=== PATIENT | female | born 1960 | race Caucasian/White ===

== ENCOUNTER 2023-03-24 01:00 | Day surgery (SDC) | payer BC, SELFPAY ==
[2023-03-24] VITALS (13 sets, daily range): BP systolic 102–198; BP diastolic 51–111; PULSE 80–98; RESP 12–20; TEMP 36.4–36.8; O2SAT 91–98; BMI 29.3; BMI 30.4
--- NOTE | 2023-03-24 01:18 | ED.GENADULT ---
HPI - General Adult General Time Seen by Provider: 01:18 Date Seen: 03/24/23 Chief complaint: Nausea/Vomiting Stated complaint: difficulty breathing, dizzy Time Seen by Provider: 03/24/23 01:18 Source: patient, RN notes reviewed and old records reviewed Mode of arrival: ambulatory Limitations: no limitations History of Present Illness HPI narrative: Lorenza is a very pleasant 62-year-old female with a history of type 2 diabetes brought to the emergency room by her for evaluation regarding persistent vomiting and diarrhea. Patient states that she had the onset of reflux type symptoms approximately 48 hours ago. She states that she has had that in the past but never this bad. Her reflux symptoms became vomiting and diarrhea in nature. When she arrives she did have loose stool here and now continues to retch although she has only been able to bring up bile the past couple hours. She has not had a fever that they know of. She denies shortness of breath. She does agree that occasionally she has chest pain but states that that is because of the reflux. No past history of heart disease. She denies shortness of breath. She notes she does have discomfort in her upper abdomen. Her sister recently had her gallbladder removed. According to nursing staff her reports that she is not acting normally. Related Data Allergies Allergy/AdvReac Type Severity Reaction Status Date / Time No Known Drug Allergies Allergy Verified 03/24/23 01:17 Review of Systems Status of ROS: Reports: 10 or more systems reviewed and unremarkable except as noted in History and below Const: Reports: fatigue; Denies: fever or chills Eyes: Denies: change in vision ENMT: Denies: throat pain, neck pain, throat swelling or difficulty swallowing Cardio: Reports: chest pain and lightheadedness; Denies: palpitations, edema, swelling of feet/ankles or shortness of breath with exertion Resp: Denies: shortness of breath or cough GI: Reports: abdominal pain, nausea, vomiting, diarrhea and blood in stool (Noted only when wiping. Not in the toilet.); Denies: difficulty swallowing : Denies: painful urination, urinary frequency, urinary urgency or decreased urine ouput Musculo: Denies: back pain or neck pain Integ/Breast: Denies: rash or redness Neuro: Denies: headache Endo: Reports: fatigue Allergy/Immuno: Denies: throat swelling PFSH PFSH Social History Smoking Status: Current every day smoker Do you use any of these nicotine containing products: None How often do you have a drink containing alcohol: 2-4 times a month How many standard drinks containing alcohol do you have on a typical day: 1 or 2 AUDIT-C Alcohol total score: 2 Non-prescribed substance use: marijuana (any form) Exam Narrative: Exam Narrative: Patient is alert and oriented. Appears to be mentating normally for this examiner. Eyes are clear. Oral cavity is with moist mucous membranes but lips are dry. Neck is supple. Heart with tachycardic rate and rhythm. Lungs are clear bilaterally. Patient has no epigastric tenderness but does have pain in the right upper quadrant. No masses are palpated. Lower extremities without edema. Const: Vital Signs, click to edit/add: Vital Signs - 24 hr 03/24/23 01:04 03/24/23 03:11 Temperature 97.7 F Pulse Rate [Pulse Oximeter] 96 98 Respiratory Rate 20 18 Blood Pressure [Le ft Upper Arm] 194/111 H 198/99 H Pulse Oximetry 98 93 Oxygen Delivery Me thod Room Air Room Air Documenting provider has reviewed patient's vital signs: yes Course Course ED Course: Differential diagnosis includes but is not limited to COVID, gastroenteritis, enteritis, cholecystitis, urinary tract infection, small-bowel obstruction. Will place IV and give 1 L normal saline Zofran 4 mg. At this time will check CBC, comprehensive panel +bilirubin, CRP, urinalysis. Plan on CT of the chest abdomen and pelvis. Also order EKG and troponin. Reevaluation(s) Reevaluation #1: Patient noted no improvement of her nausea with Zofran and thus she was given Ativan 0.5 mg IV with improvement. Reevaluation #2: Patient not vomiting but has continued nausea. I a a.m. not able to elicit clear complaints of discomfort from her but her blood pressure remains elevated. Patient will be given Dilaudid 0.5 mg IV. I did discuss her CT with her which does show a large stone in the gallbladder with suspected cholecystitis. Her LFTs and bilirubin however within normal limits. After speaking to hospitalist will order ultrasound. Patient will be admitted to the floor. Vital Signs Vital signs: Initial Vital Signs Temperature 97.7 F 03/24/23 01:04 Temperature Source Temporal Artery Scan 03/24/23 01:04 Pulse Rate 96 03/24/23 01:04 Respiratory Rate 20 03/24/23 01:04 Blood Pressure 194/111 H 03/24/23 01:04 Blood Pressure Mean 138 H 03/24/23 01:04 Blood Pressure Position Supine 03/24/23 01:04 Pulse Oximetry 98 03/24/23 01:04 Oxygen Delivery Method Room Air 03/24/23 01:04 Vital Signs Temperature 97.7 F 03/24/23 01:04 Pulse Rate 96 03/24/23 01:04 Respiratory Rate 20 03/24/23 01:04 Blood Pressure 194/111 H 03/24/23 01:04 Pulse Oximetry 98 03/24/23 01:04 Oxygen Delivery Method Room Air 03/24/23 01:04 Temperature 97.7 F 03/24/23 01:04 Pulse Rate 98 03/24/23 03:11 Respiratory Rate 18 03/24/23 03:11 Blood Pressure 198/99 H 03/24/23 03:11 Pulse Oximetry 93 03/24/23 03:11 Oxygen Delivery Method Room Air 03/24/23 03:11 Medical Decision Making MDM Narrative Medical decision making narrative: 1. Cholelithiasis with cholecystitis-normal white count, LFTs. CRP is elevated at 2.5. CT shows a large 3 cm stone with suspected cholecystitis. Zosyn 3.375 g IV is given. Initially patient did not describe pain but more nausea. She appears to have discomfort at this time will give her Dilaudid 0.5 mg IV. Have ordered ultrasound as 1st morning appointment with our techs. Patient will be admitted to the floor. 2. Nausea vomiting and diarrhea-Zofran helped minimally with the nausea and thus Ativan 0.5 mg IV was given. Patient also received 2 L normal saline and is now on maintenance fluids. CT shows possibility of some inflammation of the colon. Possibly this would indicate some sort of gastritis. Patient has noted a small amount of blood when wiping but no obvious blood in the toilet this evening. No blood in her vomit. EKG and troponin reassuring as patient did describe some discomfort in her chest with her history of ?reflux). 3. Altered behavior-patient noted to have a some odd behavior occasionally. I did enter the room to only to find her laying on the floor. I did ascertain that she did not fall there but actually took her pillow and blanket to lay on the floor. White count is normal and I do not have evidence of sepsis at this time but have added lactate to her workup. 4. Diabetes type 2-patient currently has high glucose at 0337. No evidence of a metabolic acidosis with normal bicarb at this time. Patient is NPO. 5. Disposition-admit to the hospital at this time under the care of [facility] hospitalist. Hospitalist requests that I contact surgery and I was able to speak with Dr. Higgins in regards to this patient. I did notify her both of suspected cholecystitis but cannot rule out underlying colitis at this time. Dictation done with voice recognition, and as a result, wrong word or [id number] substitutions may have occurred.? There may be errors in the script that have gone undetected.? Please consider this when interpreting information found in this chart. Medical Records Medical records reviewed: Yes I reviewed the patient's medical records Lab Data Lab results reviewed: Yes I reviewed the patient's lab results Labs: Lab Results 03/24/23 03/24/23 03/24/23 Range/Units 01:26 01:34 01:58 WBC 10.35 (4.50-11.00) K/uL RBC 5.40 H (4.00-5.20) m/uL Hgb 16.0 (12.0-16.0) gm/dL Hct 47.2 (33.0-51.0) % MCV 87 (80-100) fL MCH 30 (26-34) pg MCHC 34 (32-36) gm/dL RDW Coeff of Laura 12.3 (11.5-15.5) % Plt Count 210 (140-440) K/uL Neut % (Auto) 79.0 H (42.0-72.0) % Lymph % (Auto) 13.6 L (20-44) % [place] % (Auto) 6.1 (0.0-11.0) % Eos % (Auto) 0.9 (0.0-7.0) % Baso % (Auto) 0.2 (0.0-3.0) % Neut # (Auto) 8.20 H (1.7-7.0) K/uL Lymph # (Auto) 1.40 (0.90-2.90) K/uL [place] # (Auto) 0.60 (0.00-0.90) K/UL Eos # (Auto) 0.09 (0.00-0.50) K/uL Baso # (Auto) 0.02 (0.00-0.30) K/uL Abs Immat Gran (auto) 0.02 (0.00-0.30) K/uL Imm/Tot Granulo (auto) 0.2 % Sodium 135 (135-149) mmol/L Potassium 3.9 (3.6-5.1) mmol/L Chloride 102 (96-114) mmol/L Carbon Dioxide 21 (20-32) mmol/L Anion Gap 12 (7-15) mEq/L BUN 22 (7-30) mg/dL Creatinine 0.7 (0.5-1.5) mg/dL Estimated Creat Clear 67.60 Estimated GFR 99 ml/min Glucose 337 H (60-115) mg/dL Lactate (0.5-1.9) mmol/L Calcium 9.6 (8.4-10.6) mg/dL Total Bilirubin 0.6 (0.1-1.5) mg/dL Direct Bilirubin 0.1 (0.0-0.5) mg/dL AST 17 (12-35) U/L ALT 22 (4-35) U/L Alkaline Phosphatase 105 (40-150) U/L C-Reactive Protein 2.5 H (0.5-1.0) mg/dL Total Protein 6.6 (6.0-8.3) g/dL Albumin 3.6 (3.3-5.0) g/dL Urine Color (Yellow) Urine Appearance (Clear) Urine pH (5.0-8.5) Ur Specific [place] (1.000-1.030) Urine Protein (Negative) Urine Glucose (UA) (Negative) Urine Ketones (Negative) Urine Blood (Negative) Urine Nitrite (Negative) Urine Bilirubin (Negative) Urine Urobilinogen (0.2-1.0) Ur Leukocyte Esterase (Negative) Urine RBC (0-2) Urine WBC (0-5) Ur Squamous Epith Cells (None-Few) Urine Bacteria (None) Urine Mucus (None) SARS-CoV-2 (PCR) Negative SARS-CoV-2 (Negative) Lab Acknowledgement POC Troponin I 0.00 L (0.01-0.04) ng/ml 03/24/23 03/24/23 03/24/23 Range/Units 02:53 04:39 04:53 WBC (4.50-11.00) K/uL RBC (4.00-5.20) m/uL Hgb (12.0-16.0) gm/dL Hct (33.0-51.0) % MCV (80-100) fL MCH (26-34) pg MCHC (32-36) gm/dL RDW Coeff of Laura (11.5-15.5) % Plt Count (140-440) K/uL Neut % (Auto) (42.0-72.0) % Lymph % (Auto) (20-44) % [place] % (Auto) (0.0-11.0) % Eos % (Auto) (0.0-7.0) % Baso % (Auto) (0.0-3.0) % Neut # (Auto) (1.7-7.0) K/uL Lymph # (Auto) (0.90-2.90) K/uL [place] # (Auto) (0.00-0.90) K/UL Eos # (Auto) (0.00-0.50) K/uL Baso # (Auto) (0.00-0.30) K/uL Abs Immat Gran (auto) (0.00-0.30) K/uL Imm/Tot Granulo (auto) % Sodium (135-149) mmol/L Potassium (3.6-5.1) mmol/L Chloride (96-114) mmol/L Carbon Dioxide (20-32) mmol/L Anion Gap (7-15) mEq/L BUN (7-30) mg/dL Creatinine (0.5-1.5) mg/dL Estimated Creat Clear Estimated GFR ml/min Glucose (60-115) mg/dL Lactate 1.1 (0.5-1.9) mmol/L Calcium (8.4-10.6) mg/dL Total Bilirubin (0.1-1.5) mg/dL Direct Bilirubin (0.0-0.5) mg/dL AST (12-35) U/L ALT (4-35) U/L Alkaline Phosphatase (40-150) U/L C-Reactive Protein (0.5-1.0) mg/dL Total Protein (6.0-8.3) g/dL Albumin (3.3-5.0) g/dL Urine Color Yellow (Yellow) Urine Appearance Clear (Clear) Urine pH 5.5 (5.0-8.5) Ur Specific [place] 1.020 (1.000-1.030) Urine Protein 2+ A (Negative) Urine Glucose (UA) 3+ A (Negative) Urine Ketones 3+ A (Negative) Urine Blood Trace-lysed A (Negative) Urine Nitrite Negative (Negative) Urine Bilirubin Negative (Negative) Urine Urobilinogen 0.2 (0.2-1.0) Ur Leukocyte Esterase Negative (Negative) Urine RBC 2-5 A (0-2) Urine WBC 0-2 (0-5) Ur Squamous Epith Cells Few (None-Few) Urine Bacteria None (None) Urine Mucus Few A (None) SARS-CoV-2 (PCR) (Negative) Lab Acknowledgement New Spec Needed POC Troponin I (0.01-0.04) ng/ml Imaging Data CT Chest/Ab/Pelvis: Attestation: I have reviewed the pertinent imaging results. My impression: Large gallbladder stone noted. Radiologist's impression: Cardiovascular structures: Heart size is normal. Thoracic aorta and main pulmonary artery are normal in caliber. Mediastinum and fermin: No enlarged lymph nodes by size criteria. Calcified mediastinal lymph node noted. Lungs and pleura: Lungs and pleural spaces are clear. No suspicious nodules, infiltrates, or effusions. Chest wall and axilla: No mass or adenopathy. Bones: Mild multilevel degenerative spondylosis without acute fracture or aggressive osseous lesion. ABDOMEN AND PELVIS: Liver: Hepatic steatosis. Gallbladder and bile ducts: Large 3 cm gallstone noted with question of gallbladder wall thickening/pericholecystic inflammation. If there is concern for acute cholecystitis would recommend further evaluation with ultrasound was more sensitive. Pancreas: Unremarkable. Spleen: Sequela of calcified granulomata. Adrenal glands: Unremarkable. Kidneys: Unremarkable. No hydronephrosis. Unremarkable bladder. GI tract: The majority of the colon is decompressed with mild wall thickening likely related to degree of decompression. A mild infectious/inflammatory colitis is an additional consideration but felt less likely. Additionally, mild wall thickening of the rectum which also may relate to degree of decompression although underlying lesion cannot entirely be excluded. Recommend correlation with colonoscopy history. No evidence of bowel obstruction. The appendix is not discretely visualized. Vascular structures: Abdominal aorta of normal caliber with moderate aortoiliac atherosclerosis. Lymph nodes: Unremarkable. Miscellaneous: No free air or significant free fluid. Pelvic Organs: Unremarkable. Bones: Mild multilevel degenerative spondylosis without acute fracture or aggressive osseous lesion. IMPRESSION: 1. Large 3 cm gallstone noted with question of gallbladder wall thickening/pericholecystic inflammation. If there is concern for acute cholecystitis would recommend further evaluation with ultrasound which would be more sensitive. 2. The majority of the colon is decompressed with mild wall thickening likely related to degree of decompression. A mild infectious/inflammatory colitis is an additional consideration but felt less likely. Additionally, mild wall thickening of the rectum which also may relate to degree of decompression although underlying lesion cannot entirely be excluded. Recommend correlation with colonoscopy history. 3. Hepatic steatosis. 4. No evidence of acute cardiopulmonary process. ECG Data Attestation: I personally reviewed and interpreted this ECG as follows: Interpretation: EKG by my read shows sinus rhythm at a rate of 96. I do not note any acute ST or T-wave changes. Normal HI and QT intervals Discharge Plan Discharge Clinical Impression: Nausea vomiting and diarrhea Abdominal pain Qualifiers: Abdominal location: epigastric Qualified Code(s): R10.13 - Epigastric pain Cholelithiasis Qualifiers: Cholelithiasis location: gallbladder Cholecystitis presence: with cholecystitis Cholecystitis acuity: acute Biliary obstruction: without biliary obstruction Qualified Code(s): K80.00 - Calculus of gallbladder with acute cholecystitis without obstruction Patient Disposition: Admitted As Observation Condition: Improved
--- NOTE | 2023-03-24 01:28 | CRLHL7_ITS ---
For Patients: As a result of the 21st Century Cures Act, medical imaging exams and procedure reports are released immediately into your electronic medical record. You may view this report before your referring provider. If you have questions, please contact your health care provider. INDICATION: Reflux with abdominal pain, dyspnea, dizzy TECHNIQUE: CT chest, abdomen and pelvis acquired with 79 cc Isovue 370 IV contrast. COMPARISON: None. FINDINGS: CHEST: Cardiovascular structures: Heart size is normal. Thoracic aorta and main pulmonary artery are normal in caliber. Mediastinum and fermin: No enlarged lymph nodes by size criteria. Calcified mediastinal lymph node noted. Lungs and pleura: Lungs and pleural spaces are clear. No suspicious nodules, infiltrates, or effusions. Chest wall and axilla: No mass or adenopathy. Bones: Mild multilevel degenerative spondylosis without acute fracture or aggressive osseous lesion. ABDOMEN AND PELVIS: Liver: Hepatic steatosis. Gallbladder and bile ducts: Large 3 cm gallstone noted with question of gallbladder wall thickening/pericholecystic inflammation. If there is concern for acute cholecystitis would recommend further evaluation with ultrasound was more sensitive. Pancreas: Unremarkable. Spleen: Sequela of calcified granulomata. Adrenal glands: Unremarkable. Kidneys: Unremarkable. No hydronephrosis. Unremarkable bladder. GI tract: The majority of the colon is decompressed with mild wall thickening likely related to degree of decompression. A mild infectious/inflammatory colitis is an additional consideration but felt less likely. Additionally, mild wall thickening of the rectum which also may relate to degree of decompression although underlying lesion cannot entirely be excluded. Recommend correlation with colonoscopy history. No evidence of bowel obstruction. The appendix is not discretely visualized. Vascular structures: Abdominal aorta of normal caliber with moderate aortoiliac atherosclerosis. Lymph nodes: Unremarkable. Miscellaneous: No free air or significant free fluid. Pelvic Organs: Unremarkable. Bones: Mild multilevel degenerative spondylosis without acute fracture or aggressive osseous lesion. IMPRESSION: 1. Large 3 cm gallstone noted with question of gallbladder wall thickening/pericholecystic inflammation. If there is concern for acute cholecystitis would recommend further evaluation with ultrasound which would be more sensitive. 2. The majority of the colon is decompressed with mild wall thickening likely related to degree of decompression. A mild infectious/inflammatory colitis is an additional consideration but felt less likely. Additionally, mild wall thickening of the rectum which also may relate to degree of decompression although underlying lesion cannot entirely be excluded. Recommend correlation with colonoscopy history. 3. Hepatic steatosis. 4. No evidence of acute cardiopulmonary process. Please note that all CT scans at this facility use dose modulation, iterative reconstruction, and/or weight-based dosing when appropriate to reduce radiation dose to as low as reasonably achievable. Dictated by Wolf Guajardo MD @ 03/24/2023 4:25:29 AM (Electronically Signed)
[2023-03-24] MEDS: 0.9 % SODIUM CHLORIDE 1000 ml 1,000 ML IV ×2 (01:48→02:26)
[2023-03-24] MEDS: ONDANSETRON 2 MG/ML inj 4 MG IVP (01:48)
[2023-03-24 02:07] LABS: Basophils Absolute Auto 0.02 K/uL (0.00-0.30); Basophils Percent Auto 0.2 % (0.0-3.0); Eosinophils Absolute Auto 0.09 K/uL (0.00-0.50); Eosinophils Percent Auto 0.9 % (0.0-7.0); Hematocrit 47.2 % (33.0-51.0); Immature Granulocytes Abs Auto 0.02 K/uL (0.00-0.30); Immature Granulocytes Pct Auto 0.2 %; Lymphocytes Percent Auto 13.6 % (20-44); Mean Corpuscular HGB Conc 34 gm/dL (32-36); Mean Corpuscular Hemoglobin 30 pg (26-34); Mean Corpuscular Volume 87 fL (80-100); Monocytes Percent Auto 6.1 % (0.0-11.0); Platelet Count* 210 K/uL (140-440); RDW Coefficient of Variation % 12.3 % (11.5-15.5); White Blood Count* 10.35 K/uL (4.50-11.00)
[2023-03-24 02:12] LABS: Slide Review Reflex No
[2023-03-24] MEDS: LORazepam 2 MG/ML inj 0.5 MG IVP (02:15)
[2023-03-24 02:19] LABS: Albumin* 3.6 g/dL (3.3-5.0); Chloride* 102 mmol/L (96-114); Potassium* 3.9 mmol/L (3.6-5.1); Sodium* 135 mmol/L (135-149)
[2023-03-24 02:21] LABS: Creatinine* 0.7 mg/dL (0.5-1.5); Estimated Glomerular Filt Rate 99 ml/min
[2023-03-24 02:22] LABS: Alanine Aminotransferase* 22 U/L (4-35); Alkaline Phosphatase* 105 U/L (40-150); Anion Gap 12 mEq/L (7-15); Aspartate Amino Transferase* 17 U/L (12-35); Bilirubin Direct* 0.1 mg/dL (0.0-0.5); Bilirubin Total* 0.6 mg/dL (0.1-1.5); Blood Urea Nitrogen* 22 mg/dL (7-30); Calcium* 9.6 mg/dL (8.4-10.6); Carbon Dioxide* 21 mmol/L (20-32); Glucose* 337 mg/dL (60-115); Total Protein* 6.6 g/dL (6.0-8.3)
[2023-03-24 02:26] LABS: C Reactive Protein* 2.5 mg/dL (0.5-1.0)
[2023-03-24 02:42] LABS: SARS PCR* Negative SARS-CoV-2 (Negative)
[2023-03-24 03:00] LABS: Appearance Urine Clear (Clear); Bilirubin Urine Negative (Negative); Blood Urine Trace-lysed (Negative); Color Urine Yellow (Yellow); Glucose Urine 3+ (Negative); Ketones Urine 3+ (Negative); Leukocyte Esterase Urine Negative (Negative); Nitrite Urine Negative (Negative); Protein Urine 2+ (Negative); Urobilinogen Urine 0.2 (0.2-1.0); pH Urine 5.5 (5.0-8.5)
[2023-03-24 03:08] LABS: Mucus Urine Few; Squamous Epithelial Cell Urine Few (None-Few); WBC Urine 0-2 (0-5)
[2023-03-24] MEDS: HYDROmorphone 0.5 mg/0.5 ml inj IVP ×3 (04:51→16:41)
[2023-03-24] MEDS: PIPERACILLIN/TAZOBACTAM 3.375 GM in 0.9 % SODIUM CHLORIDE Mini-bag 100 ML IVPB (04:51)
[2023-03-24] MEDS: KETOROLAC 15 MG/ML inj IVP (04:51)
[2023-03-24] MEDS: 0.9 % SODIUM CHLORIDE 1000 ml 1,000 ML 125 ML IV (04:51)
[2023-03-24 04:58] LABS: Lactate* 1.1 mmol/L (0.5-1.9)
[2023-03-24 04:58] LABS: Lab Add On Test New Spec Needed
--- NOTE | 2023-03-24 05:30 | PC.NURSE ---
report given to Pascale MORENO on Med/surg. patient going to room 281
--- NOTE | 2023-03-24 05:47 | PC.NURSE ---
patient brought to room 281 on medsurg
--- NOTE | 2023-03-24 06:30 | CRLHL7_ITS ---
For Patients: As a result of the Century Cures Act, medical imaging exams and procedure reports are released immediately into your electronic medical record. You may view this report before your referring provider. If you have questions, please contact your health care provider. INDICATION: Right upper quadrant abdomen pain. TECHNIQUE: Ultrasound abdomen limited. Sonographic images of the right upper quadrant were obtained using hathaway-scale and color Doppler images. COMPARISON: Same day CT abdomen pelvis. FINDINGS: Liver: The liver is normal in size with increased parenchymal echotexture compatible pack steatosis. Scattered hypoechoic ill-defined areas throughout the hepatic parenchyma measurements 4.0 cm, most compatible with focal fatty sparing. No suspicious masses. No intrahepatic biliary dilatation. Gallbladder: Large gallstone within the gallbladder neck measuring to 2.7 cm. The gallbladder wall is thickened measuring up to 8 mm. No definite pericholecystic inflammation. Negative ultrasonographic Arias`s sign. Common bile duct: 3 mm. Pancreas: Visualized portions of the pancreas appear homogeneous. Right kidney: Normal in size. Normal echotexture and cortex. No suspicious masses, stones, or hydronephrosis. Vasculature: Proximal abdominal aorta and IVC are unremarkable. IMPRESSION: Large gallstone within the gallbladder neck measuring to 2.7 cm. The gallbladder wall is thickened measuring up to 8 mm. No definite pericholecystic inflammation. Negative ultrasonographic Arias`s sign. Findings are indeterminate but overall concerning for acute cholecystitis in the appropriate clinical context. Nuclear medicine hepatobiliary imaging could be considered to confirm, if clinically indicated. Hepatic steatosis with areas of focal fatty sparing. Dictated by Wolf Guajardo MD @ 03/24/2023 8:20:52 AM (Electronically Signed)
--- NOTE | 2023-03-24 06:48 | P.IMHP_ITS ---
Hospitalist- H&P: HPI History of Present Illness Date Seen: 03/24/23 Chief complaint: difficulty breathing, dizzy Narrative: Lorenza Mcmanus is a 62 year old female is seen as an Interactive Telehealth visit. The patient is a 62-year-old female with a past medical history notable for type 2 diabetes and tobacco use disorder who presents for abdominal pain, nausea, vomiting and diarrhea. All the symptoms started around the same time around 10 PM 3 days prior to admission. The pain was worse with food. She describes it as a severe burning pain. Shortly after the onset of the abdominal pain she developed nausea and vomiting. She also developed some loose stools. Occasionally the pain radiated up into her chest. She thinks it is related to reflux and vomiting. She has not vomited bile several times and has not been able to keep food down. She did develop some chills on the evening prior to admission. She is unsure whether she had a fever prior to admission, she did not measure her temperature. She reports the pain was so severe she felt short of breath and also felt somewhat dizzy. In the ER she underwent a CT scan that showed a large gallstone and changes consistent with cholecystitis. She had incidental colonic thickening and rectal thickening that will need outpatient follow-up. Review of Systems Status of ROS: Reports: 10 or more systems reviewed and unremarkable except as noted in History and below [facility] Medical History Type II diabetes mellitus ?E11.9 - Type 2 diabetes mellitus without complications (ICD-10) Surgical History H/O: ?Z98.891 - History of uterine scar from previous surgery (ICD-10) Social History What is your current living situation?: I presently have a place to live Problems where you live: no known problems Problems where you live details: None In the past 12 months, utilities in danger of being shut off: no In the past 12 mos, have been you worried that your food would run out before you had money to buy more?: never true In the past 12 mos, the food you bought just didn't last and you didn't have money to buy more?: never true Highest level of school completed/degree received: Associate degree: academic program Smoking Status: Current every day smoker What tobacco products do you use: cigarettes Smoking packs per day: 1 Smoking cigarettes per day: 20.0 Do you use any of these nicotine containing products: None How often do you have a drink containing alcohol: monthly or less How many standard drinks containing alcohol do you have on a typical day: 1 or 2 How often do you have six or more drinks on one occasion: Never AUDIT-C Alcohol total score: 1 Non-prescribed substance use: marijuana (any form) Caffeine: Yes How often does anyone, including family, friends and others, physically hurt you : never How often does anyone, including family, friends and others, insult or talk down to you: never How often does anyone, including family, friends and others, threaten you with harm: never How often does anyone, including family, friends and others, scream or curse at you: never service: No Meds Home Medications and Allergies Allergies Allergy/AdvReac Type Severity Reaction Status Date / Time morphine AdvReac Mild itching Verified 03/24/23 06:45 Exam Narrative: Exam Narrative: GENERAL: vital signs reviewed, well developed and nourished, appears uncomfortable HEENT: pupils are equal and round, extraocular movements are grossly within normal limits and oral mucosa is dry. NECK: Supple without lymphadenopathy or thyromegaly according to nursing staff examination observation HEART: Regular rate and rhythm without any rubs, murmurs or gallops. LUNGS: Clear to auscultation bilaterally with good air movement throughout ABDOMEN: Observation from nurse assisted exam, abdomen appears soft, mild diffuse tenderness on the upper abdomen with significant tenderness in the right upper quadrant, and nondistended with Positive bowel sounds noted. EXTREMITIES: Strength and sensation is observed to be grossly within normal limits in the upper and lower extremities. No focal strength deficit is observed SKIN: Observed warm and dry with color normal NEURO: Alert, awake. Answers all questions appropriately. No focal neuro deficits are noted. PSYCH: Affect normal Const: Vital Signs, click to edit/add: Vital Signs - 24 hr 03/24/23 01:04 03/24/23 03:11 03/24/23 05:57 Temperature 97.7 F 97.8 F Pulse Rate [Pulse Oximeter] 96 98 Pulse Rate [Right Pulse Oximeter] 80 Respiratory Rate 20 18 18 Blood Pressure [Le ft Upper Arm] 194/111 H 198/99 H Blood Pressure [Ri ght Arm] 184/79 H Pulse Oximetry 98 93 93 Oxygen Delivery Me thod Room Air Room Air Room Air Hospitalist - H&P: Result Labs Labs: Short CBC 03/24/23 Range/Units 01:58 WBC 10.35 (4.50-11.00) K/uL Hgb 16.0 (12.0-16.0) gm/dL Hct 47.2 (33.0-51.0) % Plt Count 210 (140-440) K/uL BMP 03/24/23 01:58 Sodium 135 Potassium 3.9 Chloride 102 Carbon Dioxide 21 BUN 22 Creatinine 0.7 Glucose 337 H Calcium 9.6 Liver Function 03/24/23 Range/Units 01:58 Total Bilirubin 0.6 (0.1-1.5) mg/dL Direct Bilirubin 0.1 (0.0-0.5) mg/dL AST 17 (12-35) U/L ALT 22 (4-35) U/L Alkaline Phosphatase 105 (40-150) U/L Albumin 3.6 (3.3-5.0) g/dL Urine 03/24/23 Range/Units 02:53 Urine Color Yellow (Yellow) Urine Appearance Clear (Clear) Urine pH 5.5 (5.0-8.5) Ur Specific Laverne 1.020 (1.000-1.030) Urine Protein 2+ A (Negative) Urine Glucose (UA) 3+ A (Negative) Imaging CT scan - abdomen: Attestation: I have reviewed the pertinent imaging results. Radiologist's impression: CT chest abdomen pelvis 1. Large 3 cm gallstone noted with question of gallbladder wall thickening/pericholecystic inflammation. If there is concern for acute cholecystitis would recommend further evaluation with ultrasound which would be more sensitive. 2. The majority of the colon is decompressed with mild wall thickening likely related to degree of decompression. A mild infectious/inflammatory colitis is an additional consideration but felt less likely. Additionally, mild wall thickening of the rectum which also may relate to degree of decompression although underlying lesion cannot entirely be excluded. Recommend correlation with colonoscopy history. 3. Hepatic steatosis. Assessment and Plan Assessment and plan (1) Cholelithiasis: Status: Acute (2) Abdominal pain: Status: Acute (3) Nausea vomiting and diarrhea: Status: Acute (4) Type II diabetes mellitus: Status: Acute (5) Tobacco use disorder: Status: Acute (6) Dehydration: Status: Acute Plan Right upper quadrant pain Intractable nausea and vomiting Cholelithiasis Suspected acute cholecystitis CT scan personally reviewed: Suspected gallbladder wall thickening, large gallstone noted. See incidental findings Abdominal ultrasound ordered for a.m. Patient received a dose of Zosyn in the emergency room. Nontoxic-appearing. General surgery was contacted by the ER provider and will see the patient this morning. N.p.o. Antiemetics and analgesics Dehydration Lactated Ringer's 100 MLS per hour Elevated blood pressure Denies history of hypertension, likely related to pain Type 2 with diabetes with hyperglycemia Sliding scale insulin while n.p.o. Home medication regimen after pharmacy med review Colonic thickening Outpatient colonoscopy If worsening diarrhea will check for C. difficile Tobacco use disorder Nicotine patch PRN Full Code confirmed on admission DVT PPX w/ SCDs Prior to admission home medications that were felt to be needed immediately have been ordered. The remainder of the home medications will await pharmacy reconciliation and will be ordered by the attending provider in the a.m. Telehealth Visit: Today's History and Physical is provided via interactive telehealth by Dr. John Bush MD. Patient is located at [facility]. Provider is located at [facility]. Nursing staff assisted with the patient's exam. The visit being done today meets criteria for a telehealth visit and the patient or patients parent/guardian is aware the visit is a telehealth visit. Start Time: 620 End Time: 630 Medical Complexity: High ~~~~~~~~~~~~~~~~ Dr. John Bush ~~~~~~~~~~~~~~~~ Disclaimer: This note may contain dictation using voice recognition software. As a result, there may be errors that have gone undetected. Please consider this when interpreting information found in this note.
[2023-03-24] MEDS: LACTATED RINGERS 1000 ML 1,000 ML 125 ML IV (08:27)
--- NOTE | 2023-03-24 08:37 | P.GSCN_ITS ---
History of Present Illness Consult details Date Seen: 03/24/23 Consult date: 03/24/23 Narrative: The patient is a 62-year-old female who presented to the emergency department overnight with several days of nausea, vomiting and diarrhea as well as abdominal pain. She states on Thursday she developed vomiting and diarrhea as well as reflux pain in the epigastric area. She states that the pain now moved to her right upper quadrant. She has had reflux symptoms before but nothing this painful. Previously when she would have though symptoms the vomiting would help however it is not helping now. She states that the diarrhea has now gotten better but her stools are still somewhat loose. She states that her bowel movements had not changed in color but she did have some blood noted with wiping. She has never had a colonoscopy. Yesterday she had [place] like her symptoms had plateaued somewhat and so she tried tater tots and a small amount of steak around 1:00 p.m.. This did not sit well with her. She later tried yogurt around 6:00 p.m.. her symptoms then got worse and she felt lethargic and weak. She has not had a fever. She has had a small amount of chest pain shortness of breath with the symptoms. [facility] Medical History (Updated 03/24/23 @ 09:26 by Lavern Khan MD) Tobacco use disorder ?F17.200 - Nicotine dependence, unspecified, uncomplicated (ICD-10) Type II diabetes mellitus ?E11.9 - Type 2 diabetes mellitus without complications (ICD-10) Surgical History H/O: ?Z98.891 - History of uterine scar from previous surgery (ICD-10) Social History (Updated 03/24/23 @ 09:25 by Lavern Khan MD) Narrative: She is retired from the [employer]. She drinks alcohol occasionally. Smokes 1/2 PPD What is your current living situation?: I presently have a place to live Problems where you live: no known problems Problems where you live details: None In the past 12 months, utilities in danger of being shut off: no In the past 12 mos, have been you worried that your food would run out before you had money to buy more?: never true In the past 12 mos, the food you bought just didn't last and you didn't have money to buy more?: never true Highest level of school completed/degree received: Associate degree: academic program Smoking Status: Current every day smoker What tobacco products do you use: cigarettes Smoking packs per day: 1 Smoking cigarettes per day: 20.0 Do you use any of these nicotine containing products: None How often do you have a drink containing alcohol: monthly or less How many standard drinks containing alcohol do you have on a typical day: 1 or 2 How often do you have six or more drinks on one occasion: Never AUDIT-C Alcohol total score: 1 Non-prescribed substance use: marijuana (any form) Caffeine: Yes How often does anyone, including family, friends and others, physically hurt you : never How often does anyone, including family, friends and others, insult or talk down to you: never How often does anyone, including family, friends and others, threaten you with harm: never How often does anyone, including family, friends and others, scream or curse at you: never service: No Meds Home Medications and Allergies Allergies Allergy/AdvReac Type Severity Reaction Status Date / Time morphine AdvReac Mild itching Verified 03/24/23 06:45 Exam Narrative: Exam Narrative: General appearance: Alert, cooperative, and in no distress Eyes: PERRLA, eye lids clear, and sclera white HENT Head: Normocephalic Ears: External ears normal Pulmonary: Breathing nonlabored on room air Cardiovascular Heart: Regular rate Extremities: warm and well perfused Gastrointestinal Abdominal: No upper abdominal scars. No hernias. She is markedly tender in the epigastrium. She is tender though less so in the right upper quadrant. Positive Arias sign in the right upper quadrant. Musculoskeletal: Extremities: Upper: Both upper extremities have normal joint range of motion and intact strength. Lower: Both lower extremities have normal joint range of motion and i ntact strength. Skin: Normal skin color, texture, and turgor. Neurologic: No focal deficits Psychiatric: Alert, oriented, cooperative, normal affect. Const: Vital Signs, click to edit/add: Vital Signs - 24 hr 03/24/23 01:04 03/24/23 03:11 03/24/23 05:57 Temperature 97.7 F 97.8 F Pulse Rate [Pulse Oximeter] 96 98 Pulse Rate [Right Pulse Oximeter] 80 Respiratory Rate 20 18 18 Blood Pressure [Le ft Upper Arm] 194/111 H 198/99 H Blood Pressure [Ri ght Arm] 184/79 H Pulse Oximetry 98 93 93 Oxygen Delivery Me thod Room Air Room Air Room Air 03/24/23 07:00 03/24/23 07:00 Temperature 97.9 F Pulse Rate [Pulse Oximeter] Pulse Rate [Right Pulse Oximeter] 87 87 Respiratory Rate 16 16 Blood Pressure [Le ft Upper Arm] Blood Pressure [Ri ght Arm] 110/56 L Pulse Oximetry 92 Oxygen Delivery Me thod Room Air Results Labs Labs: Abnormal lab results 03/24/23 03/24/23 03/24/23 Range/Units 01:26 01:58 02:53 RBC 5.40 H (4.00-5.20) m/uL Neut % (Auto) 79.0 H (42.0-72.0) % Lymph % (Auto) 13.6 L (20-44) % Neut # (Auto) 8.20 H (1.7-7.0) K/uL Glucose 337 H (60-115) mg/dL C-Reactive Protein 2.5 H (0.5-1.0) mg/dL Urine Protein 2+ A (Negative) Urine Glucose (UA) 3+ A (Negative) Urine Ketones 3+ A (Negative) Urine Blood Trace-lysed A (Negative) Urine RBC 2-5 A (0-2) Urine Mucus Few A (None) POC Troponin I 0.00 L (0.01-0.04) ng/ml Diabetes panel 03/24/23 Range/Units 01:58 Sodium 135 (135-149) mmol/L Potassium 3.9 (3.6-5.1) mmol/L Chloride 102 (96-114) mmol/L Carbon Dioxide 21 (20-32) mmol/L BUN 22 (7-30) mg/dL Creatinine 0.7 (0.5-1.5) mg/dL Glucose 337 H (60-115) mg/dL Calcium 9.6 (8.4-10.6) mg/dL AST 17 (12-35) U/L ALT 22 (4-35) U/L Alkaline Phosphatase 105 (40-150) U/L Total Protein 6.6 (6.0-8.3) g/dL Albumin 3.6 (3.3-5.0) g/dL Calcium panel 03/24/23 Range/Units 01:58 Calcium 9.6 (8.4-10.6) mg/dL Albumin 3.6 (3.3-5.0) g/dL Pituitary panel 03/24/23 Range/Units 01:58 Sodium 135 (135-149) mmol/L Potassium 3.9 (3.6-5.1) mmol/L Chloride 102 (96-114) mmol/L Carbon Dioxide 21 (20-32) mmol/L BUN 22 (7-30) mg/dL Creatinine 0.7 (0.5-1.5) mg/dL Glucose 337 H (60-115) mg/dL Calcium 9.6 (8.4-10.6) mg/dL Adrenal panel 03/24/23 Range/Units 01:58 Sodium 135 (135-149) mmol/L Potassium 3.9 (3.6-5.1) mmol/L Chloride 102 (96-114) mmol/L Carbon Dioxide 21 (20-32) mmol/L BUN 22 (7-30) mg/dL Creatinine 0.7 (0.5-1.5) mg/dL Glucose 337 H (60-115) mg/dL Calcium 9.6 (8.4-10.6) mg/dL Total Bilirubin 0.6 (0.1-1.5) mg/dL AST 17 (12-35) U/L ALT 22 (4-35) U/L Alkaline Phosphatase 105 (40-150) U/L Total Protein 6.6 (6.0-8.3) g/dL Albumin 3.6 (3.3-5.0) g/dL All other labs normal. Imaging Abdominal ultrasound report/results: report reviewed and image reviewed Additional studies: CT abdomen 03/24/23: IMPRESSION: 1. Large 3 cm gallstone noted with question of gallbladder wall thickening/pericholecystic inflammation. If there is concern for acute cholecystitis would recommend further evaluation with ultrasound which would be more sensitive. 2. The majority of the colon is decompressed with mild wall thickening likely related to degree of decompression. A mild infectious/inflammatory colitis is an additional consideration but felt less likely. Additionally, mild wall thickening of the rectum which also may relate to degree of decompression although underlying lesion cannot entirely be excluded. Recommend correlation with colonoscopy history. 3. Hepatic steatosis. 4. No evidence of acute cardiopulmonary process. Please note that all CT scans at this facility use dose modulation, iterative reconstruction, and/or weight-based dosing when appropriate to reduce radiation dose to as low as reasonably achievable. Dictated by Wolf Guajardo MD @ 03/24/2023 4:25:29 AM US abdomen 03/24/23: IMPRESSION: Large gallstone within the gallbladder neck measuring to 2.7 cm. The gallbladder wall is thickened measuring up to 8 mm. No definite pericholecystic inflammation. Negative ultrasonographic Airas`s sign. Findings are indeterminate but overall concerning for acute cholecystitis in the appropriate clinical context. Nuclear medicine hepatobiliary imaging could be considered to confirm, if clinically indicated. Hepatic steatosis with areas of focal fatty sparing. Dictated by Wolf Guajardo MD @ 03/24/2023 8:20:52 AM Assessment and Plan Assessment and plan (1) Tobacco use disorder: Status: Acute (2) Cholelithiasis: Status: Acute (3) Type II diabetes mellitus: Status: Acute (4) Cholecystitis: Status: Acute (5) Nausea vomiting and diarrhea: Status: Acute (6) BRBPR (bright red blood per rectum): Status: Acute Plan The patient is a 62-year-old female with acute cholecystitis. I explained that the treatment for this is laparoscopic cholecystectomy. We discussed the procedure as well as risks and benefits of surgery which include bleeding, infection, bile leak, conversion to open or injury to other structures, specifically the common bile duct. We also discussed recovery. Currently there is no concern for choledocholithiasis though a lipase was not checked. I have added this on today. Presuming that this is within normal limits, there is OR availability today and as long as there are no changes, surgery will be planned for that time. I told her that she should undergo colonoscopy given the colitis and thickening changes as well as the bleeding. This could all be secondary to her recent diarrheal illness, however as an outpatient when she recovers she should have a colonoscopy. This can be ordered by her primary care provider.
[2023-03-24] MEDS: SODIUM CHLORIDE 0.9 % (FLUSH) 10 ML SYRINGE 5 ML IVF (08:46)
[2023-03-24 09:36] LABS: Lipase* 47 U/L (23-300)
--- NOTE | 2023-03-24 13:47 | P.GSOP_ITS ---
Operative Note Pre-op diagnosis: 1. Acute cholecystitis. 2. Cholelithiasis. Post-op diagnosis: 1. Acute cholecystitis. Type of Procedure: 1. Laparoscopic cholecystectomy. Indications: 62-year-old female presented to emergency room with several days of vomiting, diarrhea, and abdominal pain. This started on Thursday. Patient initially had epigastric pain that migrated to the right upper quadrant. She thought this was reflux. She continued to have loose stools. Her symptoms improved somewhat and she tried to eat tater tots but noticed that her symptoms got worse. On clinical exam patient had tenderness to palpation in epigastrium and right upper quadrant with positive Arias sign. Upon her workup she was found to have a normal WBC was mildly elevated CRP. Her liver function tests were normal. On abdominal ultrasound was obtained that showed gallbladder wall thickening up to 8 mm. There was a large stone in the neck of the gallbladder. Common bile duct was normal. Given patient's clinical history and her physical exam, acute cholecystitis was suspected, and laparoscopic cholecystectomy was recommended. The procedure was discussed in detail. The risks associated procedure including infection, bleeding, injury to the common bile duct, and injury to intra- abdominal organs were all discussed with the patient, she agreed to proceed. Procedure Description: After discussing the risks and benefits of the procedure, the patient signed informed consent.? The operative site was marked and the patient was brought to the operating room and placed on the operating table in supine position.? Care was taken to pad the patient's pressure points.?? The patient was then intubated by anesthesia.?? The operative site was then prepped and draped in the usual sterile fashion.? A time-out was then performed. A 5-mm laparoscopy port was placed in the left upper quadrant guided by a 5-mm laparoscope placed into a translucent trochar.~ Passage through the layers of the abdominal wall was visualized with the laparoscope.~ A pneumoperitoneum was established. A 0-degree 5-mm laparoscope was advanced into the abdomen. The abdomen was briefly surveyed, and adhesions to the lower abdominal wall were noted. A 10-mm port were placed infraumbilically and two more 5 mm ports were placed on the right under direct visualization by laparoscope. The camera was then changed to 10 mm 30-degree scope and placed into the abdomen through the 10 mm port. The left upper quadrant port entrance was examined and no injury to intra-abdominal organs was identified. The gallbladder was identified, the fundus grasped and retracted cephalad. The gallbladder was inflamed. The infundibulum was grasped and retracted laterally, exposing the peritoneum overlying the triangle of Calot. This was then divided and exposed in a blunt fashion and with hook cautery. Common bile duct was not identified but care was taken not to injure it. The cystic duct was clearly identified and bluntly dissected circumferentially. A small cystic artery was visualized anterior to the cystic duct. This was clipped with a 5 mm clip on the patient's side and divided with cautery. This appeared to be fairly small for the cystic artery but no cystic artery was seen in the triangle of Calot. The cystic duct was clearly going into the gallbladder. The cystic duct was then doubly ligated with surgical clips on the patient's side and singly clipped on the gallbladder side and divided. I then proceeded with dissecting the gallbladder off the liver with cautery. A posterior cystic artery was then visualized. This was skeletonized bluntly with the Maryland clamp. It was clipped with 5 mm clips on the patient's side and the specimen side and divided with cautery. The gallbladder was further dissected from the liver bed in retrograde fashion using hookcautery. Moderate amount of edema was noted in the wall of the gallbladder. The gallbladder was placed into an Endo-Catch bag and removed through the infraumbilical incision. Surgical site was examined for bleeding. No bleeding was seen in the surgical field. The fascia of the infraumbilical incision was then closed with 0-0 vicryl. Pneumoperitoneum was completely reduced after viewing removal of the trocars under direct vision. The skin was then closed with 4-0 monocryl and steristrips were applied. Instrument, sponge, and needle counts were correct at closure and at the conclusion of the case. The patient was transferred to PACU in stable condition. Findings: Moderate amount of gallbladder wall edema noted. Anesthesia: GETA Surgeon: Honorio Gomez MD Estimated blood loss (mL): 5 Specimen: Gallbladder Condition: stable Disposition: PACU Date of procedure: 03/24/23
--- NOTE | 2023-03-24 15:01 | W.ANESCHARGE ---
Anesthesia Charges Start Date/Time Anesthesia Start Date: 03/24/23 Anesthesia Start Time: 14:07 Stop Date/Time Anesthesia Stop Date: 03/24/23 Anesthesia Stop Time: 15:36
[2023-03-24] MEDS: BUPIVACAINE 0.25% 30 ML INJECTION (15:13)
[2023-03-24] MEDS: LACTATED RINGERS 1000 ML 1,000 ML 35 ML IV (15:32)
--- NOTE | 2023-03-24 15:37 | W.ANESCHARGE ---
Anesthesia Charges Start Date/Time Anesthesia Start Date: 03/24/23 Anesthesia Start Time: 14:07 Stop Date/Time Anesthesia Stop Date: 03/24/23 Anesthesia Stop Time: 15:36
--- NOTE | 2023-03-24 15:46 | PC.NURSE ---
End of shift note: Patient is alert and oriented x4. at bedside, C/O pain in Abd 10/20 PRN dilauded administered w/relief. Surgery scheduled for 1300, Patient off unit at 1345. Patient independent in room, requested a shower prior to surgery. IV in right wrist SL. NPO since 1800 03/23/2023.
[2023-03-24] MEDS: ACETAMINOPHEN 325 MG TABLET 650 MG PO (16:41)
[2023-03-24] MEDS: HYDROCODONE-ACETAMIN 5-325 MG 1 TAB PO (19:41)
--- NOTE | 2023-03-24 20:23 | PC.NURSE ---
Patient unable to draft roller picker Rx at [facility] this evening before closing. Spoke with Dr. Khan, cancelled Rx for [place] at [facility] and used [facility] to dispense: Hydrocone/Acetaminophen 5mg-325mg Take 1-2 tablets orally every 6 hours as needed for pain Qty 20, no refills.
--- NOTE | 2023-03-24 20:40 | PC.NURSE ---
Nursing Care Hours: [id number] Pt this shift arrived from PACU drowsy and oriented. C/o pain 12/20, treated per eMAR. VSS. Bowel sounds active. Lap sites CDI. End of shift, assisted out of bed to bathroom, gait steady. Pt void and had smear BM. Tolerated regular diet.
--- NOTE | 2023-03-24 22:57 | PC.NURSE ---
Discharge note: Pt alert and oriented, pleasant. C/o 6/10 pain to abd, PRN [place] 2 tabs admin, pt tolerating. Pt tolerating diet, drinking oral fluids. Voided, BM. Up ind in room. Denies nausea. Steri strips to abd, intact, some old scant drainage noted. Sites free of redness, warmth and drainage. Pt d/c home with spouse. Pt picking up prescription from ED lobby dispenser. D/c instructions reviewed with pt. IV removed, catheter intact. Pt denies further questions, denies concerns. Pt given WC ride to ED w/ spouse.
== END 2023-03-24 21:30 | disposition home or self-care (01) ==
LOC: ED 05:14 → MEDSURG 09:20 → SS 10:41 → MEDSURG 10:43
PROVIDERS: Surgery; Emergency Provider Family Medicine; PCP Family Medicine; Visit Provider Surgery
PROC: 0FT44ZZ Resection of Gallbladder, Percutaneous Endoscopic Approach (ICD-10-PCS; CPT 47562; principal; 2023-03-24 13:15)
DX: K80.00 Calculus of gallbladder with acute cholecystitis without obstruction (principal); E11.9 Type 2 diabetes mellitus without complications; E86.0 Dehydration; K62.5 Hemorrhage of anus and rectum
CPT/HCPCS: 47562; 00790; 36415; 71260; 74177; 76705; 80053; 81001; 82248; 82270; 82962; 83605; 83690; 84484; 85025; 86140; 87635; 88304; 93005; 99285; A9270; G0378; J0330; J0665; J1100; J1170; J1885; J2060; J2250; J2371; J2405; J2543; J2704; J3010; J3490; J7030; J7120; Q9967